=== PATIENT | female | born 1945 | race Caucasian/White ===

== ENCOUNTER 2025-01-05 09:08 | Day surgery (SDC) | payer MEDICARE, OTHER ==
[2025-01-05] MEDS: Lactated Ringers 1,000 ML IV SCH (09:38)
[2025-01-05] MEDS ORDERED: fentaNYL 50 MCG/ML SDV ONE (09:45)
[2025-01-05] MEDS ORDERED: Flumazenil 0.1 MG/ML 5 ML MDV ONE (09:45)
[2025-01-05] MEDS ORDERED: Ketamine 200 MG/20 ML MDV ONE (09:45)
[2025-01-05] MEDS ORDERED: Phenylephrine 1% 10 MG/ML SDV ONE (09:45)
[2025-01-05] MEDS ORDERED: Midazolam 1 MG/ML 2 ML SDV ONE (09:45)
[2025-01-05] MEDS ORDERED: Propofol 200 MG/20 ML SDV ONE (09:45)
== END 2025-01-05 11:14 | disposition home or self-care (01) ==
LOC: CC.SDS 09:08
PROVIDERS: ATTEND Family Medicine
DX: D12.5 Benign neoplasm of sigmoid colon (principal); K31.89 Other diseases of stomach and duodenum; K57.30 Diverticulosis of large intestine without perforation or abscess without bleeding; I10 Essential (primary) hypertension; E78.5 Hyperlipidemia, unspecified; F17.210 Nicotine dependence, cigarettes, uncomplicated; Z79.899 Other long term (current) drug therapy; Z88.8 Allergy status to other drugs, medicaments and biological substances; Z88.0 Allergy status to penicillin
CPT/HCPCS: 00811; 88305; 99100; G0121; J2250; J2371; J2704; J3010; J3490; J7120